=== PATIENT | male | born 1965 | race Caucasian/White ===

== ENCOUNTER 2016-10-06 00:10 | Emergency (ER) | payer BC, OTHER ==
[2016-10-06 00:31] LABS: Bilirubin Negative (Negative); Blood, Urine Large (Negative); Glucose, Urine (Dipstick) Negative (Negative); Leukocyte Negative (Negative); Nitrite Negative (Negative); Protein, Urine (Dipstick) Trace mg/dL (Neg-Trace)
[2016-10-06 00:34] LABS: #Basophils 0.1 thou/uL (0.0-0.2); #Eosinphils 0.1 thou/uL (0.0-0.7); #Lymphocytes 4.5 thou/uL (1.20-3.40); #Monocytes 0.7 thou/uL (0.11-0.59); #Neutrophils 4.3 thou/uL (1.40-6.50); %Basophils 1.4 % (0.0-1.0); %Eosinophils 1.3 % (0.0-10.0); %Lymphocytes 46.3 % (21.0-51.0); %Monocytes 6.8 % (0.0-10.0); %Neutrophils 44.3 % (42.0-75.0); Hemoglobin 14.9 g/dL (14.0-18.0); Mean Corpuscular HGB CONC 34.2 g/dL (32.0-36.0); Mean Corpuscular Hemoglobin 29.8 pg (27.0-31.0); Mean Corpuscular Volume 87.1 fl (80.0-94.0); Mean Platelet Volume 8.2 fL (7.4-10.4); Platelet Count 281 thou/uL (130-400); Red Blood Cell (RBC) Count 5.02 mill/uL (4.70-6.10); White Blood Cell (WBC) Count 9.7 thou/uL (4.8-10.8)
[2016-10-06] MEDS ORDERED: Sodium Chloride 0.9% 500 ML ONE (00:35)
[2016-10-06] MEDS ORDERED: Ondansetron HCl/PF 4 MG/2 ML Vial ONE ×2 (00:35→03:13)
[2016-10-06 00:39] LABS: Clarity Hazy (Clear)
[2016-10-06 00:40] LABS: Bacteria/HPF None Seen HPF (None Seen); Squamous Epithelial None Seen HPF (0-3); WBC/HPF 0-3 HPF (0-3)
[2016-10-06] MEDS ORDERED: Sodium Chloride 0.9% 1,000 ML ONE (00:44)
[2016-10-06 00:50] LABS: ALT (SGPT) 12 U/L (8-55); AST (SGOT) 16 U/L (5-34); Albumin 4.5 g/dL (3.5-5.0); Alkaline Phosphatase 61 U/L (40-150); Anion Gap 17 mmol/L (10-20); BUN (Urea Nitrogen) 16 mg/dL (8.9-20.6); Bilirubin, Total 0.7 mg/dL (0.2-1.2); Calc. Creatinine Clearance 0 mL/min (70-130); Calcium 9.6 mg/dL (7.8-10.44); Carbon Dioxide 24 mmol/L (22-29); Chloride 100 mmol/L (98-107); Estimated GFR-MDRD 72; Globulin 2.9 g/dL (2.4-3.5); Glucose 124 mg/dL (70-105); Potassium 3.8 mmol/L (3.5-5.1); Protein, Total 7.4 g/dL (6.0-8.3); Sodium 137 mmol/L (136-145)
[2016-10-06] MEDS ORDERED: Ketorolac Tromethamine 30 MG/ML VIAL ONE (03:13)
[2016-10-06] MEDS ORDERED: Tamsulosin HCl 0.4 MG CAP ONE (03:23)
[2016-10-06] MEDS ORDERED: Iopamidol 370 76% 100 ML VIAL ONE (09:00)
--- NOTE | 2016-10-06 13:11 | CT ---
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 This CT exam w as performed using one or more of the following dose reduction techniques: automated exposure contro l, adjustment of the mA and/or kV according to patient size, and/or use of iterative reconstruction technique. Coronal and sagittal reformatted images were created and reviewed. CONTRAST: 96 mL of ISOVUE 370 administered intravenously. EXAM DATE/TIME: Exam ordered 10/06/2016 2:26 AM COMPARISON: No relevant prior studies available. FINDINGS: Lower thorax: No acute findings. ABDOMEN: Liver: Periportal edema. Gallbladder and bile ducts: Unremarkable. No calcified stones. No ductal dilation. Pancreas: Unremarkable. No mass. No ductal dilation. Spleen: Unremarkable. No splenomegaly. Adrenals: Unremarkable. No mass. Kidneys and ureters: Minimal right-sided hydroureteronephrosis with mild thickening of the wall the right ureter. 2 mm obstructing stone in the distal right ureter, almost at the UVJ. Stomach and bowel: Unremarkable. No obstruction. No mucosal thickening. Appendix: Appendix not confidently visualized. No evidence of appendicitis. PELVIS: Bladder: Unremarkable. No mass. Reproductive: Unremarkable as visualized. ABDOMEN and PELVIS: Intraperitoneal space: Unremarkable. No free air. No significant fluid collection. Bones/joints: No acute fracture. No dislocation. Soft tissues: Unremarkable. Vasculature: Unremarkable. No abdominal aortic aneurysm. Lymph nodes: Unremarkable. No enlarged lymph nodes. IMPRESSION: 1. 2 mm obstructing stone in the distal right ureter causing mild obstructive uropathy. Presence of urothelial thickening of the right ureter may indicate concomitant ureteritis/pyelonephritis. RECOMM END clinical correlation. 2. There is periportal edema which is likely secondary to IV fluid administration given that the IVC is distended; however, nonspecific hepatic dysfunction, such as from hepatitis, can also cause peterson portal edema. Thank you for allowing us to participate in the care of your patient. Dictated and Authenticated by: Roger Carranza MD 10/06/2016 2:55 AM Central Time ([place] \T\ [place]) FINAL REPORT EMERGENCY AFTER HOURS EXAMINATION CT ABDOMEN AND PELVIS PERFORMED WITH INTRAVENOUS CONTRAST ENHANCEMENT HISTORY: Right lower quadrant pain. FINDINGS: ABDOMEN: The lung bases show some emphysematous type change. The liver shows some periportal edema. No focal masses. The spleen is within normal limits in size . The liver appears borderline in size. The pancreas region is unremarkable. The gallbladder also appears unremarkable. The right and left adrenal glands are normal. The left kidney is normal in appearance. There is so me mild dilatation to the right collecting system and ureter. This appears to be related to a tiny, 2 mm calculus near the right ureterovesical junction. The course of the right ureter is difficult to follow in this case. There is no significant periaortic or mesenteric adenopathy. PELVIS: The appendix is difficult to definitely identify. No inflammatory change seen. There is n o adenopathy, mass, or free fluid. IMPRESSION: 1. A 2 mm right ureterovesical junction calculus, associated with some mild right-sided hydronephro sis and hydroureter. 2. Periportal edema of uncertain etiology, could be related to intravenous administration. There a re other possible etiologies. This report is in agreement with the temporary report issued by [facility]. POS: [facility]
== END 2016-10-06 03:55 | disposition home or self-care (01) ==
LOC: NAV ERS 00:10
DX: N13.6 Pyonephrosis (principal); R00.1 Bradycardia, unspecified; J44.9 Chronic obstructive pulmonary disease, unspecified; F17.210 Nicotine dependence, cigarettes, uncomplicated
CPT/HCPCS: 74177; 80053; 81003; 81015; 83690; 85025; 93005; 96361; 96374; 96375; 96376; J1885; J2270; J2405; J7050